=== PATIENT | female | born 1940 | race Caucasian/White ===

== ENCOUNTER 2018-06-15 14:46 | Inpatient (IN) | payer MEDICARE, BC ==
[2018-06-15] VITALS (9 sets, daily range): BP systolic 98–120; BP diastolic 42–98
[~2018-06-15] VITALS: Ht 167.6 cm; Wt 63.6 kg
[~2018-06-15 14:46] MED LIST: ASPI-611 PO; ATOR20TA66 PO; LOSA50TA21 PO; TICA90TA PO
[2018-06-15] MEDS ORDERED: normal saline 1000ML IV soln IVB ONE (15:05)
[2018-06-15] MEDS ORDERED: aspirin 81mg tab.chew PO ONE ×2 (15:05→16:50)
[2018-06-15 15:16] LABS: BASOPHILS % (AUTO) 0.3 % (0-1); EOSINOPHILS # (AUTO) 0.2 X10'3 (0-0.9); EOSINOPHILS % (AUTO) 1.7 % (0-6); HEMATOCRIT 42.2 % (35.0-45.0); HEMOGLOBIN 14.5 g/dl (12.0-16.0); LYMPHOCYTES # (AUTO) 2.6 X10'3 (1.1-4.8); LYMPHOCYTES % (AUTO) 22.6 % (21-51); MEAN CORPUSCULAR HGB CONC 34.3 % (33.0-36.5); MEAN CORPUSCULAR VOLUME 93.4 FL (78-98); MONOCYTES # (AUTO) 0.7 X10'3 (0-0.9); MONOCYTES % (AUTO) 5.8 % (2-12); NEUTROPHILS % (AUTO) 69.6 % (42-75); PLATELET COUNT 212 X10'3 (140-440); RED BLOOD COUNT 4.52 X10'6 (4.20-5.60); RED CELL DISTRIBUTION WIDTH 14.2 % (11.5-14.5); WHITE BLOOD COUNT 11.5 X10'3 (4.5-11.0)
[2018-06-15] MEDS ORDERED: morphine 4 MG/ML inj SYRINge IV ONE ×2 (15:20→15:40)
[2018-06-15] MEDS ORDERED: ondansetron/PF 4mg/2ml inj IV ONE (15:20)
[2018-06-15] MEDS ORDERED: heparin 10,000 units/1 ML INJ IV ONE (15:25)
[2018-06-15 15:26] LABS: PARTIAL THROMBOPLASTIN TIME 25 SECONDS (22-32); PROTHROMBIN TIME 10.4 SECONDS (9.0-12.0)
[2018-06-15] MEDS ORDERED: iohexol 350 MG/1 ML 200ml bottle ONE (15:31)
[2018-06-15] MEDS ORDERED: LIDOcaine 1% 30ml preserv. free vial ONE (15:31)
[2018-06-15] MEDS ORDERED: heparin 1,000unit/ml 10ml vial 10 ML ONE (15:31)
[2018-06-15 15:32] LABS: ALANINE AMINOTRANSFERASE 18 U/L (12-78); ALBUMIN 3.9 G/DL (3.4-5.0); ALBUMIN/GLOBULIN RATIO 1.3 (1.1-1.5); ALKALINE PHOSPHATASE 71 IU/L (46-116); ANION GAP 13 (8-16); ASPARTATE AMINO TRANSFERASE 18 U/L (10-37); BILIRUBIN,TOTAL 0.5 MG/DL (0.1-1.0); BLOOD UREA NITROGEN 15 MG/DL (7-18); BUN/CREATININE RATIO 14.2 (6.6-38.0); CHLORIDE 104 MMOL/L (99-107); CREATININE 1.06 MG/DL (0.40-0.90); GLUCOSE 134 MG/DL (70-104); POTASSIUM 3.5 MMOL/L (3.5-5.1); SODIUM 140 MMOL/L (135-145); TOTAL CARBON DIOXIDE 22.8 MMOL/L (24-32); eGFR 50 ML/MIN
[2018-06-15] MEDS ORDERED: midazolam 2 mg/2 ml injection ONE (15:53)
[2018-06-15] MEDS ORDERED: atropine 0.1mg/ml 10ml syringe ONE (16:02)
[2018-06-15] MEDS ORDERED: ticagrelor 90mg tablet ONE (16:21)
[2018-06-15] MEDS ORDERED: proCHLORperazine 10 MG/2 ml inj IV PRN (16:50)
[2018-06-15] MEDS ORDERED: OXAZEpam 15mg capsule PO PRN (16:50)
[2018-06-15] MEDS ORDERED: ondansetron/PF 4mg/2ml inj IV PRN (16:50)
[2018-06-15] MEDS ORDERED: HYDROcodone/acetaminophen 5mg/325mg tablet PO PRN (16:50)
[2018-06-15] MEDS ORDERED: HYDROcodone/acetaminophen 10/325mg tab PO PRN (16:50)
[2018-06-15] MEDS: normal saline 1000ml 1,000 ML IV SCH (17:26)
[2018-06-15] MEDS: atorvastatin 20mg tablet PO SCH (20:59)
[2018-06-16] MEDS: normal saline 1000ml 1,000 ML IV SCH (02:50)
[2018-06-16 03:00] VITALS: BP 125/77
[2018-06-16 06:53] LABS: CHOLESTEROL 127 MG/DL (0-200); HDL CHOLESTEROL 62 MG/DL (35-60); LDL CHOLESTEROL 58 MG/DL (50-100); TRIGLYCERIDES 44 MG/DL (20-135)
[2018-06-16 07:00] VITALS: BP 125/51
[2018-06-16] MEDS: ticagrelor 90mg tablet PO SCH ×2 (08:21→21:12)
[2018-06-16] MEDS: aspirin 81mg tab.chew PO SCH (08:22)
[2018-06-16 09:40] LABS: ALBUMIN 3.4 G/DL (3.4-5.0); ANION GAP 13 (8-16); BLOOD UREA NITROGEN 11 MG/DL (7-18); BUN/CREATININE RATIO 14.3 (6.6-38.0); CALCIUM 8.2 MG/DL (8.5-10.1); CHLORIDE 107 MMOL/L (99-107); CREATININE 0.77 MG/DL (0.40-0.90); GLUCOSE 89 MG/DL (70-104); POTASSIUM 3.7 MMOL/L (3.5-5.1); SODIUM 142 MMOL/L (135-145); TOTAL CARBON DIOXIDE 22.3 MMOL/L (24-32); eGFR 73 ML/MIN
[2018-06-16 11:11] VITALS: BP 124/49
[2018-06-16] MEDS: losartan 50mg tablet PO SCH (13:02)
[2018-06-16 16:32] VITALS: BP 115/54
[2018-06-16 19:00] VITALS: BP 109/40
[2018-06-16] MEDS: atorvastatin 20mg tablet PO SCH (21:12)
[2018-06-16 23:00] VITALS: BP 130/58
[2018-06-17 03:00] VITALS: BP 122/48
[2018-06-17 05:20] LABS: BASOPHILS % (AUTO) 0.4 % (0-1); EOSINOPHILS # (AUTO) 0.2 X10'3 (0-0.9); EOSINOPHILS % (AUTO) 2.5 % (0-6); HEMATOCRIT 40.6 % (35.0-45.0); HEMOGLOBIN 13.9 g/dl (12.0-16.0); LYMPHOCYTES # (AUTO) 1.8 X10'3 (1.1-4.8); LYMPHOCYTES % (AUTO) 24.1 % (21-51); MEAN CORPUSCULAR HEMOGLOBIN 32.1 PG (27.0-31.0); MEAN CORPUSCULAR HGB CONC 34.3 % (33.0-36.5); MEAN CORPUSCULAR VOLUME 93.7 FL (78-98); MEAN PLATELET VOLUME 8.4 FL (7.4-10.4); MONOCYTES # (AUTO) 0.6 X10'3 (0-0.9); MONOCYTES % (AUTO) 8.4 % (2-12); NEUTROPHILS # (AUTO) 4.7 X10'3 (1.8-7.7); NEUTROPHILS % (AUTO) 64.6 % (42-75); PLATELET COUNT 204 X10'3 (140-440); RED BLOOD COUNT 4.33 X10'6 (4.20-5.60); RED CELL DISTRIBUTION WIDTH 14.2 % (11.5-14.5); WHITE BLOOD COUNT 7.3 X10'3 (4.5-11.0)
[2018-06-17 05:45] LABS: ALBUMIN 3.3 G/DL (3.4-5.0); ANION GAP 8 (8-16); BLOOD UREA NITROGEN 9 MG/DL (7-18); BUN/CREATININE RATIO 13.4 (6.6-38.0); CALCIUM 8.5 MG/DL (8.5-10.1); CHLORIDE 105 MMOL/L (99-107); CREATININE 0.67 MG/DL (0.40-0.90); GLUCOSE 97 MG/DL (70-104); POTASSIUM 3.8 MMOL/L (3.5-5.1); SODIUM 140 MMOL/L (135-145); TOTAL CARBON DIOXIDE 27.4 MMOL/L (24-32); eGFR 85 ML/MIN
[2018-06-17 06:00] VITALS: BP 126/75
[2018-06-17] MEDS ORDERED: TICA90TA PO (06:51)
[2018-06-17] MEDS ORDERED: RIVA20TA PO (06:51)
[2018-06-17] MEDS: aspirin 81mg tab.chew PO SCH (07:11)
[2018-06-17] MEDS: losartan 50mg tablet PO SCH (07:11)
[2018-06-17] MEDS: ticagrelor 90mg tablet PO SCH (07:11)
[2018-06-17] MEDS ORDERED: rivaroxaban 20mg tablet PO SCH (08:00)
== END 2018-06-17 10:45 | disposition home or self-care (01) | DRG 246 ==
LOC: ER 14:47 → PCU 3S 18:47
PROVIDERS: ADMIT Internal Medicine Interventional Cardiology; ATTEND Internal Medicine Interventional Cardiology
PROC: 027135Z Dilation of Coronary Artery, Two Arteries with Two Drug-eluting Intraluminal Devices, Percutaneous Approach (ICD-10-PCS; principal; 2018-06-15)
PROC: 4A023N7 Measurement of Cardiac Sampling and Pressure, Left Heart, Percutaneous Approach (ICD-10-PCS; 2018-06-15)
PROC: B2111ZZ Fluoroscopy of Multiple Coronary Arteries using Low Osmolar Contrast (ICD-10-PCS; 2018-06-15)
PROC: B2151ZZ Fluoroscopy of Left Heart using Low Osmolar Contrast (ICD-10-PCS; 2018-06-15)
DX: I21.19 ST elevation (STEMI) myocardial infarction involving other coronary artery of inferior wall (principal); I82.220 Acute embolism and thrombosis of inferior vena cava; I10 Essential (primary) hypertension; E78.5 Hyperlipidemia, unspecified; I25.10 Atherosclerotic heart disease of native coronary artery without angina pectoris; F17.200 Nicotine dependence, unspecified, uncomplicated; I25.2 Old myocardial infarction; Z95.5 Presence of coronary angioplasty implant and graft; Z88.6 Allergy status to analgesic agent; Z79.82 Long term (current) use of aspirin; Z79.899 Other long term (current) drug therapy; Z79.02 Long term (current) use of antithrombotics/antiplatelets; Z86.74 Personal history of sudden cardiac arrest; Z71.6 Tobacco abuse counseling
CPT/HCPCS: 93306; 93458; 96374; 96375; 99285; C9601; C9606; 36415; 71045; 80048; 80053; 80061; 83880; 84484; 85025; 85610; 85730; 87070; 93005; 99152; 99153; A4620; A6257; A6258; C1725; C1760; C1769; C1874; J0461; J1644; J2250; J2270; J2405; J3490; J7030; Q9967

== ENCOUNTER 2019-11-30 13:12 | Emergency (ER) | payer MEDICARE, BC ==
[~2019-11-30] VITALS: Ht 167.6 cm; Wt 55.0 kg
[~2019-11-30 13:12] MED LIST changes: -LOSA50TA21 PO; +LOSA50TA64 PO; +RIVA20TA PO
[2019-11-30 13:18] VITALS: BP 146/64
[2019-11-30 13:50] LABS: BASOPHILS # (AUTO) 0.1 X10'3 (0-0.2); BASOPHILS % (AUTO) 1.1 % (0-1); EOSINOPHILS # (AUTO) 0.2 X10'3 (0-0.9); EOSINOPHILS % (AUTO) 3.5 % (0-6); HEMATOCRIT 43.6 % (35.0-45.0); HEMOGLOBIN 15.1 g/dl (12.0-16.0); LYMPHOCYTES # (AUTO) 1.2 X10'3 (1.1-4.8); LYMPHOCYTES % (AUTO) 21.7 % (21-51); MEAN CORPUSCULAR HEMOGLOBIN 32.8 PG (27.0-31.0); MEAN CORPUSCULAR HGB CONC 34.7 g/dL (33.0-36.5); MEAN CORPUSCULAR VOLUME 94.5 FL (78-98); MEAN PLATELET VOLUME 8.1 FL (7.4-10.4); MONOCYTES # (AUTO) 0.4 X10'3 (0-0.9); MONOCYTES % (AUTO) 8.1 % (2-12); NEUTROPHILS # (AUTO) 3.6 X10'3 (1.8-7.7); NEUTROPHILS % (AUTO) 65.6 % (42-75); PLATELET COUNT 233 X10'3 (140-440); RED BLOOD COUNT 4.61 X10'6 (4.20-5.60); RED CELL DISTRIBUTION WIDTH 13.8 % (11.5-14.5); WHITE BLOOD COUNT 5.5 X10'3 (4.5-11.0)
[2019-11-30 14:05] LABS: ALANINE AMINOTRANSFERASE 21 U/L (12-78); ALBUMIN 3.9 G/DL (3.4-5.0); ALBUMIN/GLOBULIN RATIO 1.2 (1.1-1.5); ALKALINE PHOSPHATASE 79 IU/L (46-116); ANION GAP 8 (8-16); ASPARTATE AMINO TRANSFERASE 21 U/L (10-37); BILIRUBIN,TOTAL 0.5 MG/DL (0.1-1.0); BLOOD UREA NITROGEN 10 MG/DL (7-18); BUN/CREATININE RATIO 16.4 (6.6-38.0); CALCIUM 8.6 MG/DL (8.5-10.1); CHLORIDE 109 MMOL/L (99-107); CREATININE 0.61 MG/DL (0.40-0.90); GLUCOSE 106 MG/DL (70-104); POTASSIUM 3.9 MMOL/L (3.5-5.1); SODIUM 143 MMOL/L (135-145); TOTAL CARBON DIOXIDE 25.8 MMOL/L (24-32); TOTAL PROTEIN 7.1 G/DL (6.4-8.2); eGFR > 90 ML/MIN
[2019-11-30] MEDS ORDERED: dexamethasone sod phosphate 10mg/ml inj PO STA (17:39)
[2019-11-30] MEDS ORDERED: ALBU18HF2 INH (17:40)
[2019-11-30] MEDS ORDERED: PRED20TA PO (17:40)
== END 2019-11-30 17:51 | disposition home or self-care (01) ==
LOC: ER 13:12
DX: R06.02 Shortness of breath (principal); I25.10 Atherosclerotic heart disease of native coronary artery without angina pectoris; I25.2 Old myocardial infarction; Z98.61 Coronary angioplasty status; Z88.5 Allergy status to narcotic agent; Z79.82 Long term (current) use of aspirin; Z79.01 Long term (current) use of anticoagulants; Z79.899 Other long term (current) drug therapy
CPT/HCPCS: 36415; 71045; 80053; 83880; 84484; 85025; 93005; 99285; J1100

== ENCOUNTER 2022-01-17 10:05 | Inpatient (IN) | payer MEDICARE, BC ==
[~2022-01-17] VITALS: Ht 152.4 cm; Wt 52.7 kg
[~2022-01-17 10:05] MED LIST changes: +ALBU18HF2 INH
[2022-01-17] MEDS ORDERED: midazolam 1 mg/ML 2ml injection ONE (10:38)
[2022-01-17] MEDS ORDERED: heparin 1,000unit/ml 10ml vial 10 ML ONE (10:38)
[2022-01-17] MEDS ORDERED: LIDOcaine 1% (10mg/ml)w/preservative inj. 20ml MDV ONE (10:38)
[2022-01-17] MEDS ORDERED: verapamil 2.5 mg/ml inj IV ONE (10:38)
[2022-01-17] MEDS ORDERED: iohexol 350 MG/1 ML 200ml bottle ONE (10:38)
[2022-01-17] MEDS ORDERED: fentaNYL/PF 50MCG/1 ML 2ML syringe ONE (10:38)
[2022-01-17] MEDS ORDERED: nitroGLYCERIN-Tridil 50MG/D5W 250 ML IV ONE (10:38)
[2022-01-17 10:40] LABS: BASOPHILS # (AUTO) 0.1 X10'3 (0-0.2); EOSINOPHILS # (AUTO) 0.2 X10'3 (0-0.9); EOSINOPHILS % (AUTO) 2.6 % (0-6); HEMATOCRIT 45.3 % (35.0-45.0); HEMOGLOBIN 15.1 g/dl (12.0-16.0); LYMPHOCYTES # (AUTO) 2.5 X10'3 (1.1-4.8); LYMPHOCYTES % (AUTO) 37.6 % (21-51); MEAN CORPUSCULAR HEMOGLOBIN 31.4 PG (27.0-31.0); MEAN CORPUSCULAR HGB CONC 33.3 g/dL (33.0-36.5); MEAN CORPUSCULAR VOLUME 94.4 FL (78-98); MONOCYTES # (AUTO) 0.4 X10'3 (0-0.9); MONOCYTES % (AUTO) 6.7 % (2-12); NEUTROPHILS # (AUTO) 3.4 X10'3 (1.8-7.7); NEUTROPHILS % (AUTO) 52.1 % (42-75); PLATELET COUNT 235 X10'3 (140-440); RED BLOOD COUNT 4.81 X10'6 (4.20-5.60); RED CELL DISTRIBUTION WIDTH 14.3 % (11.5-14.5); WHITE BLOOD COUNT 6.5 X10'3 (4.5-11.0)
[2022-01-17] MEDS ORDERED: heparin 10,000 units/1 ML INJ IV ONE (10:40)
[2022-01-17] MEDS ORDERED: heparin 10,000 units/1 ML INJ IV PRN (10:40)
[2022-01-17] MEDS ORDERED: heparin 25,000 UNIT/250ml bag 250 ML IV SCH (10:40)
--- NOTE | 2022-01-17 10:40 | NUR ---
STEMI called. 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
[2022-01-17] MEDS ORDERED: fentaNYL/PF 50MCG/1 ML 2ML syringe IV ONE (10:45)
--- NOTE | 2022-01-17 10:45 | NUR ---
Cath team at bedside
--- NOTE | 2022-01-17 10:53 | NUR ---
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 Heparin gtt to be given in pre-op. Pt vital signs stable at this time.
[2022-01-17 10:55] LABS: ALANINE AMINOTRANSFERASE 19 U/L (12-78); ALBUMIN/GLOBULIN RATIO 1.2 (1.1-1.5); ALKALINE PHOSPHATASE 83 IU/L (46-116); ANION GAP 13 (8-16); ASPARTATE AMINO TRANSFERASE 21 U/L (10-37); BILIRUBIN,TOTAL 0.5 MG/DL (0.1-1.0); BLOOD UREA NITROGEN 13 MG/DL (7-18); BUN/CREATININE RATIO 16.9 (6.6-38.0); CHLORIDE 103 MMOL/L (99-107); CREATININE 0.77 MG/DL (0.40-0.90); GLUCOSE 112 MG/DL (70-104); POTASSIUM 3.8 MMOL/L (3.5-5.1); SODIUM 141 MMOL/L (135-145); TOTAL CARBON DIOXIDE 25.3 MMOL/L (24-32); TOTAL PROTEIN 7.3 G/DL (6.4-8.2); eGFR 72 ML/MIN
[2022-01-17] MEDS ORDERED: atropine 0.1mg/ml 10ml syringe ONE (11:04)
[2022-01-17] MEDS ORDERED: DOPamine 400mg/D5W 250ml 250 ML IV ONE (11:38)
[2022-01-17] MEDS ORDERED: tirofiban 5mg in NS 100mL 100 ML IV ONE (11:43)
[2022-01-17] MEDS ORDERED: ticagrelor 90mg tablet ONE (12:10)
[2022-01-17] MEDS: aspirin 81mg tab.chew PO SCH (12:51)
[2022-01-17] MEDS ORDERED: magnesium hydroxide 30ml (MOM) UD suspension PO PRN (12:55)
[2022-01-17] MEDS ORDERED: nitroGLYCERIN 0.4mg SUBLingual tab SL PRN (12:55)
[2022-01-17] MEDS ORDERED: HYDROcodone/acetaminophen 10/325mg tab PO PRN ×2 (12:55)
[2022-01-17] MEDS ORDERED: acetaminophen 325mg tablet PO PRN ×3 (12:55→14:20)
[2022-01-17] MEDS ORDERED: cyclobenzaprine 10mg tablet PO PRN (12:55)
[2022-01-17 13:00] VITALS: BP 125/59
[2022-01-17] MEDS: normal saline 1000ml 1,000 ML IV SCH ×2 (13:15→23:15)
[2022-01-17] MEDS ORDERED: TICA90TA2 PO (13:17)
[2022-01-17 14:12] LABS: CHOLESTEROL 181 MG/DL (0-200); HDL CHOLESTEROL 90 MG/DL (35-60); LDL CHOLESTEROL 80 MG/DL (50-100); TRIGLYCERIDES 81 MG/DL (20-135)
[2022-01-17] MEDS ORDERED: magnesium 2GM in 50ml NS 50 ML IV PRN (14:20)
[2022-01-17] MEDS ORDERED: potassium CL 10mEq/100ml bag 100 ML IV PRN (14:20)
[2022-01-17] MEDS ORDERED: magnesium Cl slow-release 64mg tablet PO PRN (14:20)
[2022-01-17] MEDS ORDERED: ondansetron/PF 4mg/2ml inj IV PRN (14:20)
[2022-01-17] MEDS ORDERED: potassium Cl 20 mEq SR tablet PO PRN ×2 (14:20)
[2022-01-17] MEDS ORDERED: magnesium 4gm in 100ml NS 100 ML IV PRN (14:20)
[2022-01-17] MEDS ORDERED: normal saline 1000ml 1,000 ML IV SCH (14:20)
[2022-01-17] MEDS ORDERED: mag hydrox/Alum hydrox/simeth 30ml oral suspension PO PRN (14:20)
--- NOTE | 2022-01-17 14:33 | NUR ---
CRITICAL LAB VALUE TAKEN REPORTED TO PRIMARY RN.
[2022-01-17] MEDS: tirofiban 12.5mg in NS 250mL 250 ML IV SCH ×2 (14:40→17:05)
[2022-01-17 15:00] VITALS: BP 96/50
--- NOTE | 2022-01-17 16:15 | NUR ---
Called to notify Una, cardiology [facility] of bradycardia and hypotension at this time. Patient asymptomatic. No changes to plan of care at this time.
[2022-01-17 18:00] VITALS: BP 111/46
[2022-01-17 18:10] LABS: MAGNESIUM 2.1 MG/DL (1.5-2.4); POTASSIUM 4.3 MMOL/L (3.5-5.1)
[2022-01-17] MEDS: ticagrelor 90mg tablet PO SCH (20:00)
[2022-01-17] MEDS: K and/or MAG REPLACEMENT MC SCH (20:00)
[2022-01-17] MEDS ORDERED: ticagrelor 90mg tablet PO SCH (20:00)
[2022-01-17] MEDS: docusate sod 100mg capsule PO SCH (20:00)
[2022-01-17 22:00] VITALS: BP_SYST 111; BP_SYST 117; BP_DIAS 46; BP_DIAS 60
[2022-01-18 02:00] VITALS: BP 130/56
--- NOTE | 2022-01-18 03:14 | NUR ---
This is an 81-year-old female, admitted 01/17/2022, day 1 of hospitalization, full code, allergies to codeine,no isolation, no restraints. This patient presented through the emergency department for chest pain. She has a past medical history significant for AL with stents to the RCA x5, hypertension, hyperlipidemia, COPD. Chest pain onset approximately 1 hour prior to arrival while peeling potatoes. Described as "it is just there". Pain is nonradiating. Rated at a 5 on a 0-10 pain scale. Associated dizziness, nausea and diaphoresis. Found to have minimal ST elevation in leads 2 3 and aVF with reciprocal changes. Taken emergently to the cardiac catheterization lab. Currently, pt is AAO times 4, follows all commands, moves all extremities, steady gait. Cardiac cath access via right groin, Fem Stop removed at 1999, site CDI, Ecchymotic, No hematoma palpable, Good pedal pulses. Telemonitor 23, HR 77 SR, 130/56, good pulses, no edema. Continuous infusion of Aggrastat @.15mcgs. (Held Brilinta). IVF infusing RAC. NS at 100/hr was infusing via Left LH then stopped at 2300. RR 16 PO 98% RA. Breath sounds, clear, equal, symmetrical, non labored. Normoactive bowel sounds, soft non tender, non distended, Cardiac diet well tolerated. Ambulated to bathroom, Large formed BM. Voids freely via BR, clear yellow urine. Skin intact. Pt remains safe. continue to monitor
--- NOTE | 2022-01-18 06:50 | NUR ---
Patient in room PCU 3008. I have received report from Delmar and had the opportunity to ask questions and assume patient care.
[2022-01-18 06:59] LABS: BASOPHILS % (AUTO) 0.5 % (0-1); EOSINOPHILS # (AUTO) 0.1 X10'3 (0-0.9); EOSINOPHILS % (AUTO) 1.1 % (0-6); HEMOGLOBIN 11.9 g/dl (12.0-16.0); LYMPHOCYTES # (AUTO) 1.6 X10'3 (1.1-4.8); LYMPHOCYTES % (AUTO) 22.5 % (21-51); MEAN CORPUSCULAR HEMOGLOBIN 31.7 PG (27.0-31.0); MEAN CORPUSCULAR HGB CONC 33.9 g/dL (33.0-36.5); MEAN CORPUSCULAR VOLUME 93.5 FL (78-98); MEAN PLATELET VOLUME 8.2 FL (7.4-10.4); MONOCYTES # (AUTO) 0.7 X10'3 (0-0.9); MONOCYTES % (AUTO) 9.3 % (2-12); NEUTROPHILS # (AUTO) 4.8 X10'3 (1.8-7.7); NEUTROPHILS % (AUTO) 66.6 % (42-75); PLATELET COUNT 185 X10'3 (140-440); RED BLOOD COUNT 3.74 X10'6 (4.20-5.60); RED CELL DISTRIBUTION WIDTH 13.7 % (11.5-14.5); WHITE BLOOD COUNT 7.3 X10'3 (4.5-11.0)
[2022-01-18 07:00] VITALS: BP 131/54
[2022-01-18] MEDS: ticagrelor 90mg tablet PO SCH ×3 (07:08→20:16)
[2022-01-18 07:10] LABS: ALANINE AMINOTRANSFERASE 22 U/L (12-78); ALBUMIN 3.1 G/DL (3.4-5.0); ALBUMIN/GLOBULIN RATIO 1.2 (1.1-1.5); ALKALINE PHOSPHATASE 62 IU/L (46-116); ANION GAP 9 (8-16); ASPARTATE AMINO TRANSFERASE 57 U/L (10-37); BILIRUBIN,TOTAL 0.6 MG/DL (0.1-1.0); BLOOD UREA NITROGEN 14 MG/DL (7-18); BUN/CREATININE RATIO 20.9 (6.6-38.0); CALCIUM 7.9 MG/DL (8.5-10.1); CHLORIDE 111 MMOL/L (99-107); CREATININE 0.67 MG/DL (0.40-0.90); GLUCOSE 92 MG/DL (70-104); POTASSIUM 3.8 MMOL/L (3.5-5.1); SODIUM 144 MMOL/L (135-145); TOTAL CARBON DIOXIDE 24.3 MMOL/L (24-32); TOTAL PROTEIN 5.7 G/DL (6.4-8.2); eGFR 84 ML/MIN
[2022-01-18 07:12] LABS: CHOL/HDL RATIO 2.1 (0.00-4.99); CHOLESTEROL 138 MG/DL (0-200); HDL CHOLESTEROL 67 MG/DL (35-60); LDL CHOLESTEROL 64 MG/DL (50-100); MAGNESIUM 1.9 MG/DL (1.5-2.4); TRIGLYCERIDES 59 MG/DL (20-135)
[2022-01-18] MEDS: docusate sod 100mg capsule PO SCH ×2 (07:20→20:16)
[2022-01-18] MEDS: aspirin 81mg tab.chew PO SCH (07:21)
[2022-01-18] MEDS: atorvastatin 20mg tablet PO SCH (07:22)
[2022-01-18] MEDS: K and/or MAG REPLACEMENT MC SCH ×2 (07:28→20:00)
--- NOTE | 2022-01-18 08:00 | NUR ---
Holding scheduled Brilinta since Aggrastat gtt is running till medication is discussed with providers Addendum: 01/18/22 at 1828 by Mark Richardson RN If provider not on floor by 1000 am, will page for further instructions.
[2022-01-18] MEDS ORDERED: aspirin 81mg tab.chew PO SCH (08:30)
[2022-01-18] MEDS: normal saline 1000ml 1,000 ML IV SCH (09:15)
[2022-01-18 11:00] VITALS: BP 134/41
[2022-01-18 15:00] VITALS: BP 117/48
[2022-01-18 18:00] VITALS: BP 128/61
--- NOTE | 2022-01-18 18:23 | NUR ---
Problems reprioritized. Patient report given, questions answered & plan of care reviewed with Xochitl.
[2022-01-18 22:00] VITALS: BP 158/76
[2022-01-19 02:00] VITALS: BP 135/62
--- NOTE | 2022-01-19 06:15 | NUR ---
Problems reprioritized. Patient report given, questions answered & plan of care reviewed with AMILCAR Flores.
--- NOTE | 2022-01-19 06:17 | NUR ---
Patient in room PCU 3008. I have received report from Xochitl and had the opportunity to ask questions and assume patient care.
[2022-01-19 06:39] LABS: BASOPHILS % (AUTO) 0.5 % (0-1); EOSINOPHILS % (AUTO) 0.7 % (0-6); HEMATOCRIT 34.7 % (35.0-45.0); HEMOGLOBIN 11.9 g/dl (12.0-16.0); LYMPHOCYTES # (AUTO) 1.1 X10'3 (1.1-4.8); LYMPHOCYTES % (AUTO) 19.8 % (21-51); MEAN CORPUSCULAR HEMOGLOBIN 32.4 PG (27.0-31.0); MEAN CORPUSCULAR HGB CONC 34.2 g/dL (33.0-36.5); MEAN CORPUSCULAR VOLUME 94.7 FL (78-98); MEAN PLATELET VOLUME 8.4 FL (7.4-10.4); MONOCYTES # (AUTO) 0.5 X10'3 (0-0.9); MONOCYTES % (AUTO) 8.2 % (2-12); NEUTROPHILS # (AUTO) 4.1 X10'3 (1.8-7.7); NEUTROPHILS % (AUTO) 70.8 % (42-75); PLATELET COUNT 169 X10'3 (140-440); RED BLOOD COUNT 3.66 X10'6 (4.20-5.60); RED CELL DISTRIBUTION WIDTH 13.7 % (11.5-14.5); WHITE BLOOD COUNT 5.8 X10'3 (4.5-11.0)
[2022-01-19 07:00] VITALS: BP 126/50
[2022-01-19] MEDS: docusate sod 100mg capsule PO SCH (07:11)
[2022-01-19] MEDS: aspirin 81mg tab.chew PO SCH (07:15)
[2022-01-19] MEDS: ticagrelor 90mg tablet PO SCH (07:15)
[2022-01-19] MEDS: atorvastatin 20mg tablet PO SCH (07:15)
[2022-01-19] MEDS: K and/or MAG REPLACEMENT MC SCH (07:20)
[2022-01-19] MEDS ORDERED: ATOR20TA66 PO (10:54)
--- NOTE | 2022-01-19 10:56 | NUR ---
Page to Tona Camara. Pt had a 6 beat run of V-tach when walking the hallways. She states no lightheadedness, no dizziness, and no heart palpitations.
[2022-01-19 11:00] VITALS: BP 115/50
[2022-01-19] MEDS ORDERED: AMIO200T61 PO (11:23)
[2022-01-19] MEDS ORDERED: amiodarone 200mg tablet PO SCH (11:25)
--- NOTE | 2022-01-19 12:39 | NUR ---
Pt is discharged. IVs are out. Paperwork reviewed. Pt verbalizes understanding of medications and plan of care. Pt's family brought in Brilinta yesterday (01/18) to be verified. Pt states she is aware of her high chance of blood clots and verbalizes a plan if she runs out or is low on supply. Pt discharged via wheelchair with daughter at 1251
== END 2022-01-19 12:50 | disposition home or self-care (01) | DRG 246 ==
LOC: ER 10:06 → PCU 3S 12:44
PROVIDERS: ADMIT Internal Medicine Interventional Cardiology; ATTEND Internal Medicine Interventional Cardiology
PROC: 4A023N7 Measurement of Cardiac Sampling and Pressure, Left Heart, Percutaneous Approach (ICD-10-PCS; principal; 2022-01-17)
PROC: 027137Z Dilation of Coronary Artery, Two Arteries with Four or More Drug-eluting Intraluminal Devices, Percutaneous Approach (ICD-10-PCS; 2022-01-17)
PROC: B2111ZZ Fluoroscopy of Multiple Coronary Arteries using Low Osmolar Contrast (ICD-10-PCS; 2022-01-17)
PROC: B2151ZZ Fluoroscopy of Left Heart using Low Osmolar Contrast (ICD-10-PCS; 2022-01-17)
DX: I21.11 ST elevation (STEMI) myocardial infarction involving right coronary artery (principal); I47.2 Ventricular tachycardia; I50.30 Unspecified diastolic (congestive) heart failure; I25.110 Atherosclerotic heart disease of native coronary artery with unstable angina pectoris; J44.9 Chronic obstructive pulmonary disease, unspecified; E78.5 Hyperlipidemia, unspecified; I11.0 Hypertensive heart disease with heart failure; I34.0 Nonrheumatic mitral (valve) insufficiency; I25.2 Old myocardial infarction; Z79.82 Long term (current) use of aspirin; I95.9 Hypotension, unspecified; R00.1 Bradycardia, unspecified; Z88.5 Allergy status to narcotic agent; Z87.440 Personal history of urinary (tract) infections; Z95.5 Presence of coronary angioplasty implant and graft; Z79.899 Other long term (current) drug therapy; Z72.0 Tobacco use; Z71.6 Tobacco abuse counseling; R58 Hemorrhage, not elsewhere classified
CPT/HCPCS: 93306; 93458; 96365; 99285; C9606; 36415; 71045; 80053; 80061; 83735; 83880; 84132; 84484; 85025; 87081; 93005; 99152; 99153; A4620; A5120; A6258; C1725; C1751; C1760; C1769; C1874; C1894; G0378; J0461; J1265; J1644; J2250; J3010; J3246; J3490; Q9967

== ENCOUNTER 2023-02-25 16:33 | Emergency (ER) | payer MEDICARE, BC ==
[~2023-02-25] VITALS: Ht 170.2 cm; Wt 48.9 kg
[~2023-02-25 16:33] MED LIST changes: -ALBU18HF2 INH; -RIVA20TA PO; -TICA90TA PO; +TICA90TA2 PO
[2023-02-25 17:05] VITALS: BP 151/64
[2023-02-25 17:20] LABS: ALANINE AMINOTRANSFERASE 20 U/L (12-78); ALBUMIN 3.9 G/DL (3.4-5.0); ALBUMIN/GLOBULIN RATIO 1.2 (1.1-1.5); ALKALINE PHOSPHATASE 94 IU/L (46-116); ANION GAP 10 (8-16); ASPARTATE AMINO TRANSFERASE 23 U/L (10-37); BASOPHILS % (AUTO) 0.3 % (0-1); BILIRUBIN,TOTAL 1.2 MG/DL (0.1-1.0); BLOOD UREA NITROGEN 13 MG/DL (7-18); BUN/CREATININE RATIO 16.9 (10.0-20.0); CALCIUM 9.1 MG/DL (8.5-10.1); CHLORIDE 101 MMOL/L (99-107); CREATININE 0.77 MG/DL (0.40-0.90); EOSINOPHILS % (AUTO) 0.2 % (0-6); GLUCOSE 135 MG/DL (70-104); HEMATOCRIT 43.5 % (35.0-45.0); HEMOGLOBIN 14.9 g/dl (12.0-16.0); LYMPHOCYTES # (AUTO) 0.9 X10'3 (1.1-4.8); LYMPHOCYTES % (AUTO) 9.9 % (21-51); MEAN CORPUSCULAR HEMOGLOBIN 32.5 PG (27.0-31.0); MEAN CORPUSCULAR HGB CONC 34.2 g/dL (33.0-36.5); MEAN CORPUSCULAR VOLUME 95.1 FL (78-98); MEAN PLATELET VOLUME 8.8 FL (7.4-10.4); MONOCYTES % (AUTO) 10.4 % (2-12); NEUTROPHILS # (AUTO) 7.3 X10'3 (1.8-7.7); NEUTROPHILS % (AUTO) 79.2 % (42-75); PLATELET COUNT 199 X10'3 (140-440); POTASSIUM 3.8 MMOL/L (3.5-5.1); RED BLOOD COUNT 4.58 X10'6 (4.20-5.60); RED CELL DISTRIBUTION WIDTH 13.9 % (11.5-14.5); SODIUM 137 MMOL/L (135-145); TOTAL CARBON DIOXIDE 26.1 MMOL/L (24-32); TOTAL PROTEIN 7.2 G/DL (6.4-8.2); WHITE BLOOD COUNT 9.2 X10'3 (4.5-11.0); eGFR 72 ML/MIN
[2023-02-25 17:31] LABS: MAGNESIUM 1.9 MG/DL (1.5-2.4)
== END 2023-02-25 20:05 | disposition left against medical advice (07) ==
LOC: ER 16:34
DX: R06.02 Shortness of breath (principal); Z53.21 Procedure and treatment not carried out due to patient leaving prior to being seen by health care provider
CPT/HCPCS: 36415; 80053; 83735; 83880; 84484; 85025; 93005; 99281